=== PATIENT | female | born 1990 | race African-American/Black ===

== ENCOUNTER 2017-08-19 15:34 | Observation (INO) | payer SELFPAY | END 2017-08-19 17:05 | disposition home or self-care (01) | LOC: 3 SO LND 15:34 | PROVIDERS: ADMIT Obstetrics & Gynecology; ATTEND Obstetrics & Gynecology | DX: O26.892 Other specified pregnancy related conditions, second trimester (principal); R10.9 Unspecified abdominal pain; Z3A.22 22 weeks gestation of pregnancy | CPT/HCPCS: G0378; G0379 ==